=== PATIENT | female | born 1990 | race Caucasian/White ===

== ENCOUNTER → 2022-05-29 | Outpatient (CLI) | payer OTHER ==
[~2022-05-29] MED LIST: ALBU90OI INH; AMOX500 PO; AZIT250 PO; HYDGUAL120 PO; LORA10ER PO
[2022-05-29 13:03] LABS: Source, Urine Clean Catch
[2022-05-29 15:05] LABS: White Blood Cells, Urine TNTC /hpf (0-5)
[2022-05-29 15:06] LABS: Bacteria Many /hpf; Calcium Oxalate Crystals Many /hpf; Squamous Epithelial Cells Many /hpf (Few)
[2022-05-29 15:16] LABS: U Amphetamine Screen Not Detected; U Barbituate Screen Not Detected; U Benzodiazapine Screen Not Detected; U Buprenorphine Screen Not Detected; U Cannabinoids Screen Not Detected; U Cocaine Screen Not Detected; U Methadone Screen Not Detected; U Methamphetamine Screen Not Detected; U Opiates Screen Not Detected; U Oxycodone Screen Not Detected; U Phencyclidine Screen Not Detected; U Propoxyphene Screen Not Detected
== END | disposition home or self-care (01) ==
LOC: LAB SHORT 13:00
PROVIDERS: Advanced Practice Midwife
DX: Z34.01 Encounter for supervision of normal first pregnancy, first trimester (principal)
CPT/HCPCS: 81015; 87086

== ENCOUNTER → 2022-06-05 | Outpatient (CLI) | payer OTHER ==
[2022-06-06 07:08] LABS: Candida species (DNA Probe) Negative (NEGATIVE); G. vaginalis (DNA Probe) Negative (NEGATIVE); T. vaginalis (DNA Probe) Negative (NEGATIVE)
[2022-06-09 13:11] LABS: CHLAMYDIA TRACHOMATIS, NAA Negative (Negative); HPV 16 Negative (Negative); HPV 18 Positive (Negative); HPV OTHER HR TYPES Negative (Negative)
== END | disposition home or self-care (01) ==
LOC: LAB 13:13 → LAB SHORT 13:13
PROVIDERS: Advanced Practice Midwife
DX: Z01.419 Encounter for gynecological examination (general) (routine) without abnormal findings (principal); Z11.3 Encounter for screening for infections with a predominantly sexual mode of transmission; N76.0 Acute vaginitis
CPT/HCPCS: 87480; 87491; 87510; 87591; 87624; 87660; G0145

== ENCOUNTER → 2022-07-02 | Outpatient (CLI) | payer OTHER ==
[2022-07-02 10:38] LABS: Source, Urine Voided
[2022-07-02 11:16] LABS: Appearance, Urine Clear (Clear); Bilirubin, Urine Neg (Neg); Blood, Urine Neg (Neg); Color, Urine Yellow (P-Yellow); Glucose Qualitative, Urine Neg (Neg); Ketones, Urine Neg (Neg); Leukocyte Esterase, Urine 3+ (Neg); Nitrite, Urine Neg (Neg); Protein, Urine Neg (Neg); Specific Gravity, Urine 1.015 (1.003-1.022); Urobilinogen, Urine NORM (Normal)
[2022-07-02 11:56] LABS: Bacteria Many /hpf; Red Blood Cells, Urine Not Seen /hpf (0-2); Squamous Epithelial Cells Mod /hpf (Few)
== END | disposition home or self-care (01) ==
LOC: LAB 08:55 → LAB SHORT 08:55
PROVIDERS: Advanced Practice Midwife
DX: O23.42 Unspecified infection of urinary tract in pregnancy, second trimester (principal)
CPT/HCPCS: 81001; 87086

== ENCOUNTER → 2022-10-01 | Outpatient (CLI) | payer OTHER ==
[2022-10-01 16:24] LABS: Source, Urine Clean Catch
[2022-10-01 18:02] LABS: Appearance, Urine Turbid (Clear); Bilirubin, Urine Neg (Neg); Blood, Urine 2+ (Neg); Color, Urine Yellow (P-Yellow); Glucose Qualitative, Urine Neg (Neg); Ketones, Urine Neg (Neg); Leukocyte Esterase, Urine 3+ (Neg); Nitrite, Urine Neg (Neg); Protein, Urine 2+ (Neg); Specific Gravity, Urine 1.025 (1.003-1.022); Urobilinogen, Urine 1+ (Normal)
[2022-10-01 18:11] LABS: Amorphous Heavy (0-Heavy); Calcium Oxalate Crystals Mod /hpf
[2022-10-01 18:12] LABS: Bacteria Mod /hpf; Squamous Epithelial Cells Many /hpf (Few)
== END ==
LOC: LAB 15:00 → LAB SHORT 15:00
PROVIDERS: Advanced Practice Midwife
DX: O09.92 Supervision of high risk pregnancy, unspecified, second trimester (principal); O23.42 Unspecified infection of urinary tract in pregnancy, second trimester; Z3A.00 Weeks of gestation of pregnancy not specified
CPT/HCPCS: 81001; 87086

== ENCOUNTER 2022-10-27 06:55 | Inpatient (IN) | payer OTHER ==
[2022-10-27] VITALS (36 sets, daily range): BP systolic 93–150; BP diastolic 44–70
[~2022-10-27] VITALS: Ht 160 cm; Wt 130.4 kg
[2022-10-27 07:55] LABS: BASOPHILS ABSOLUTE AUTO 0.04 K/mm3 (0.00-0.23); BASOPHILS PERCENT AUTO 0 % (0-2); EOSINOPHILS ABSOLUTE AUTO 0.15 K/mm3 (0.00-0.68); EOSINOPHILS PERCENT AUTO 1 % (0-6); Hematocrit 34.8 % (33.0-51.0); Hemoglobin 11.7 g/dL (11.5-16.0); IMMATURE GRAN ABSOLUTE AUTO 0.08 K/mm3 (0.00-0.10); IMMATURE GRAN PERCENT AUTO 1 % (0-1); LYMPHOCYTES ABSOLUTE AUTO 1.82 K/mm3 (0.84-5.20); LYMPHOCYTES PERCENT AUTO 16 % (21-46); MONOCYTES ABSOLUTE AUTO 0.84 K/mm3 (0.16-1.47); MONOCYTES PERCENT AUTO 8 % (4-13); Mean Corpuscular HGB 28.6 pg (26.0-34.0); Mean Corpuscular HGB Conc 33.6 g/dL (31.5-36.5); Mean Corpuscular Volume 85 fL (80-100); Mean Platelet Volume 9.5 fL (9.1-12.4); NEUTROPHILS ABSOLUTE AUTO 8.15 K/mm3 (1.96-9.15); NEUTROPHILS PERCENT AUTO 74 % (41-73); Platelet Count 305 K/mm3 (150-400); RDW Coefficient Variation 13.5 % (11.7-14.2); RDW Standard Deviation 41.9 fL (35.1-46.3); Red Blood Cell Count 4.09 M/mm3 (3.80-5.20); White Blood Cell Count 11.08 K/mm3 (4.00-11.30)
[2022-10-28] VITALS (13 sets, daily range): BP systolic 107–129; BP diastolic 53–68
[2022-10-28 03:46] LABS: PCO2 Cord - Arterial 63.1 mmHg (40-50); PO2 Cord - Arterial 16.1 mmHg (16-20); pH Cord - Arterial 7.23 (7.28-7.35)
[2022-10-28 03:50] LABS: PCO2 Cord - Venous 49.4 mmHg (40-50); PO2 Cord - Venous 23.3 mmHg (28-32); pH Umbilical Cord - Venous 7.32 (7.26-7.35)
--- NOTE | 2022-10-28 09:30 | NUR ---
PT TOLERATED UP TO NURSERY WELL. AMBULATED TO BATHROOM AND VOID #1. DECLINES SHOWER AT THIS TIME. LOCHIA SCANT. READY TO TAKE A NAP NOW. BABY SHOULD BE OUT OF NURSERY SOON.
[2022-10-28 12:40] LABS: Hematocrit 33.3 % (33.0-51.0); Hemoglobin 11.2 g/dL (11.5-16.0); Mean Corpuscular HGB 28.9 pg (26.0-34.0); Mean Corpuscular HGB Conc 33.6 g/dL (31.5-36.5); Mean Corpuscular Volume 86 fL (80-100); Mean Platelet Volume 9.6 fL (9.1-12.4); Platelet Count 327 K/mm3 (150-400); RDW Coefficient Variation 13.8 % (11.7-14.2); RDW Standard Deviation 42.3 fL (35.1-46.3); Red Blood Cell Count 3.88 M/mm3 (3.80-5.20); White Blood Cell Count 22.24 K/mm3 (4.00-11.30)
[2022-10-29 06:17] VITALS: BP 114/58
[2022-10-29 07:29] VITALS: BP 122/56
[2022-10-29] MEDS ORDERED: PRENATAL TABLE1 EAC2 PO (15:12)
== END 2022-10-29 17:50 | disposition home or self-care (01) | DRG 807 ==
LOC: OBS 06:55 → BC 06:55 → OBS 07:14 → BC 07:14
PROVIDERS: ADMIT Advanced Practice Midwife
PROC: 10D07Z6 Extraction of Products of Conception, Vacuum, Via Natural or Artificial Opening (ICD-10-PCS; principal; 2022-10-28)
PROC: 0KQM0ZZ Repair Perineum Muscle, Open Approach (ICD-10-PCS; 2022-10-28)
PROC: 0UQG7ZZ Repair Vagina, Via Natural or Artificial Opening (ICD-10-PCS; 2022-10-28)
PROC: 4A033R1 Measurement of Arterial Saturation, Peripheral, Percutaneous Approach (ICD-10-PCS; 2022-10-28)
PROC: 3E0S3BZ Introduction of Anesthetic Agent into Epidural Space, Percutaneous Approach (ICD-10-PCS; 2022-10-28)
PROC: 00HU33Z Insertion of Infusion Device into Spinal Canal, Percutaneous Approach (ICD-10-PCS; 2022-10-28)
PROC: 10H07YZ Insertion of Other Device into Products of Conception, Via Natural or Artificial Opening (ICD-10-PCS; 2022-10-28)
PROC: 4A0HXCZ Measurement of Products of Conception, Cardiac Rate, External Approach (ICD-10-PCS; 2022-10-28)
DX: O24.420 Gestational diabetes mellitus in childbirth, diet controlled (principal); Z37.0 Single live birth; Z3A.39 39 weeks gestation of pregnancy; O76 Abnormality in fetal heart rate and rhythm complicating labor and delivery; O99.214 Obesity complicating childbirth; Z87.891 Personal history of nicotine dependence; O70.1 Second degree perineal laceration during delivery
CPT/HCPCS: 36415; 51701; 51702; 59070; 82803; 82947; 85025; 85027; 86850; 86900; 86901; 86923; A9270; J0290; J1885; J2405; J2590; J3010; J7030; J7120

== ENCOUNTER → 2024-03-13 | Outpatient (CLI) | payer OTHER ==
[~2024-03-13] MED LIST changes: +PRENATAL TABLE1 EAC2 PO
[2024-03-27 11:00] LABS: HPV GENOTYPE 16 BY TMA Not Detected; HPV GENOTYPE 18/45 BY TMA Detected; HPV HIGH RISK BY TMA Detected; HPV SOURCE Cervical/Vag; HPVG SOURCE Cervical/Vag
== END ==
LOC: LAB SHORT 10:19 → LAB 10:19
PROVIDERS: Advanced Practice Midwife
DX: Z01.419 Encounter for gynecological examination (general) (routine) without abnormal findings (principal)
CPT/HCPCS: 87624; 87625; G0123